=== PATIENT | male | born 1940 | race Caucasian/White ===

== ENCOUNTER → 2017-01-22 | Outpatient (CLI) | payer OTHER ==
--- NOTE | ~2017-01-22 | NDGEN ---
PATIENT'S NAME: BRITNI LANGFORD [facility] AGE: 76 Y [address] ROOM: [place] [id number] LOCATION: [facility] ADMIT DATE: 01/22/2017 Neurodiagnostics DISCHARGE DATE: FAMILY PHYSICIAN: CARMEN SÁNCHEZ PA-C ATTENDING PHYSICIAN: ABIDA SHEPARD PROCEDURE: NERVE CONDUCTION EMG STUDY OF BILATERAL UPPER EXTREMITIES. DATE OF PROCEDURE: 01/22/2017 INDICATIONS: A 76-year-old male patient who in the left upper extremity has sensation of numbness into the ulnar distribution of the left hand. He has subtle weakness of the adductor digiti minimi muscle and first dorsal interossei muscle. There is some discomfort along the ulnar sensory dermal distribution into the forearm, it seems to be a pain-like sensation and probably is relegated to a site just proximal to the elbow. Nerve conduction studies were performed in the bilateral median motor and sensory nerves and needle EMG was performed in the left adductor digiti minimi muscle on the first dorsal interossei muscle. All the motor and sensory nerve conduction study parameters were all within normal limits except for the left ulnar motor nerve, which showed demyelinating slowing to 29.4 m/sec at the area between above and below the elbow. The other ulnar nerve was within normal limits and the bilateral median nerves were normal. The bilateral median sensory nerves were within normal limits, but in the left ulnar sensory nerves, the amplitudes were low at 2.5 microvolts compared to the right ulnar sensory amplitude, which is far greater at 7.0 microvolts. The needle EMG in the left abductor digiti minimi muscle and the first dorsal interossei muscles showed decreased recruitment of motor unit action potentials, but no evidence of any positive sharp waves and fibrillation potentials. 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 The patient should have ulnar nerve displacement from the elbow site if he does already experience decreased motor unit action potential recruitment. MD MARY DAS/tyrone PATIENT'S NAME: BRITNI LANGFORD [facility] AGE: 76 Y [address] ROOM: [place], [place] [address] LOCATION: [facility] ADMIT DATE: 01/22/2017 Neurodiagnostics DISCHARGE DATE: FAMILY PHYSICIAN: CARMEN SÁNCHEZ PA-C ATTENDING PHYSICIAN: ABIDA SHEPARD /[id number] dtt: 01/28/17 1712 , ABIDA SHEPARD dtd: 01/22/17 1843
== END | disposition disaster alternative care site (69) ==
LOC: GNEU 14:17
DX: G56.20 Lesion of ulnar nerve, unspecified upper limb (principal); G62.9 Polyneuropathy, unspecified